=== PATIENT | female | born 1980 | race Caucasian/White ===

== ENCOUNTER 2017-10-01 16:37 | Emergency (ER) | payer SELFPAY ==
[~2017-10-01] VITALS: Ht 165.1 cm; Wt 50.0 kg
[2017-10-01] MEDS ORDERED: SODIUM CHLORIDE 0.9% 1,000 ML IV ONE (17:46)
[2017-10-01] MEDS ORDERED: TETANUS, DIPHTHERIA, PERTUSSIS VAC/PF 0.5ML (>7YR OLD) IM ONE (18:00)
[2017-10-01] MEDS ORDERED: BACITRACIN ZINC OINT UDPKT TOP ONE (18:00)
[2017-10-01 18:07] LABS: BASOPHILS % 0.8 % (0.0-2.0); EOSINOPHILS % 0.3 % (0.0-5.0); HEMATOCRIT. 36.8 % (36.0-48.0); HEMOGLOBIN. 12.7 g/dL (12.0-16.0); LYMPHOCYTES % 34.7 % (20.0-50.0); MEAN CORPUSCULAR VOLUME 104.1 fL (81.0-99.0); MEAN PLATELET VOLUME 9.6 fl (7.4-10.4); MONOCYTES % 5.2 % (2.0-8.0); PLATELET 74 x1000/uL (130-400); RED BLOOD CELL COUNT 3.53 mill/uL (4.2-5.4); RED CELL DISTRIBUTION WIDTH 12.8 % (11.6-14.6)
[2017-10-01 18:15] LABS: CHLORIDE 102 mEq/L (98-107)
[2017-10-01 18:29] LABS: ETHANOL BLOOD 412 mg/dL
[2017-10-01 19:06] LABS: HCG SCREEN NEGATIVE
[2017-10-01] MEDS ORDERED: LIDOCAINE HCL 1% 20ML VIAL (Pyxis) INJ MC ONE ×2 (20:30→21:30)
[2017-10-01] MEDS ORDERED: LIDOCAINE HCL 1% 20ML VIAL (Pyxis) INJ MC SCH (21:45)
[2017-10-01 22:02] VITALS: BP 179/79
== END 2017-10-01 22:32 | disposition home or self-care (01) ==
LOC: ER 16:46
DX: S01.01XA Laceration without foreign body of scalp, initial encounter (principal); F10.129 Alcohol abuse with intoxication, unspecified; W19.XXXA Unspecified fall, initial encounter; Y93.89 Activity, other specified; Y92.89 Other specified places as the place of occurrence of the external cause; Y99.8 Other external cause status; Y90.8 Blood alcohol level of 240 mg/100 ml or more
CPT/HCPCS: 12001; 36415; 80048; 80307; 80329; 84703; 85025; 90471; 90715; 96360; 96361; 99285; G0482; J3490; J7030; Z7610